=== PATIENT | female | born 1935 | race Caucasian/White ===

== ENCOUNTER 2017-07-12 19:52 | Inpatient (IN) | payer MEDICARE ==
[2017-07-12] MEDS ORDERED: ASPIRIN 81 MG CHEWABLE TABLET PO ONE (19:53)
--- NOTE | 2017-07-12 20:04 | Emergency Department Record ---
History of Present Illness - General Chief Complaint: Chest Pain Stated Complaint: CHEST PAIN Time Seen by Provider: 07/12/17 19:53 Source: Patient Mode of Arrival: Wheelchair Limitations: No limitations - History of Present Illness Initial Comments: 82 yo female presents to ED for evaluation of left sided chest pressure that began this morning. Patient reports that her symptoms began as a "cramping" to the left upper arm followed by the development of lefts ided chest pressure/ pain. Patient denies fevers, chills, or recent illness, and the patient denies previous heart or lung problems. Patient denies history of HTN/DM, reports a history of lymphoma in remission. Patient denies lower extremity cramping/ swelling or pain symptoms. MD Complaint: Chest pain Onset/Timin -: Hour(s) Onset: During rest Pain Location: Left chest Pain Radiation: LUE Severity: Moderate Quality: Heaviness Consistency: Intermittent Improves With: Nothing Worsens With: Nothing - Related Data Allergies Allergy/AdvReac Type Severity Reaction Status Date / Time penicillin V Allergy Severe HIVES Verified 07/12/17 20:00 Review of Systems Constitutional: Denies: Chills, Fever, Malaise, Night sweats Eyes: Denies: Eye discharge, Eye pain ENT: Denies: Congestion, Ear pain, Epistaxis Respiratory: Denies: Cough, Dyspnea Cardiovascular: Reports: Chest pain. Denies: Dyspnea on exertion, Palpitations Endocrine: Denies: Fatigue, Heat or cold intolerance Gastrointestinal: Denies: Abdominal pain, Nausea, Vomiting Genitourinary: Denies: Incontinence, Retention Musculoskeletal: Denies: Arthralgia, Back pain, Gout, Joint swelling Skin: Denies: Bruising, Change in color Neurological: Denies: Abnormal gait, Confusion, Headache, Seizure Psychiatric: Denies: Anxiety Hematological/Lymphatic: Denies: Anemia, Blood Clots Past Medical History - SOCIAL HISTORY Smoking Status: Never smoker Drug Use: None - RESPIRATORY Hx Respiratory Disorders: No - CARDIOVASCULAR Hx Cardio Disorders: No - NEURO Hx Neuro Disorders: No - GI Hx GI Disorders: Yes Hx Diverticulitis: Yes (hx) Hx Reflux: Yes - Hx Genitourinary Disorders: Yes Hx UTI: Yes (chronic) - ENDOCRINE Hx Endocrine Disorders: No - MUSCULOSKELETAL Hx Musculoskeletal Disorders: Yes Hx Arthritis: Yes - PSYCH Hx Psych Problems: No - HEMATOLOGY/ONCOLOGY Hx Hematology/Oncology Disorders: Yes Hx Cancer: Yes (Lymphoma (Bowels, Lungs, 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 negative: Conjunctival injection, Periorbital swelling, Periorbital tenderness, Scleral icterus - ENT Ear exam: negative: Auricular hematoma, Auricular trauma Nasal Exam: negative: Active bleeding, Discharge, Dried blood, Foreign body Mouth exam: negative: Drooling, Laceration, Muffled voice, Tongue elevation - Neck Neck exam: Normal inspection. negative: Meningismus, Tenderness - Respiratory Respiratory exam: Normal lung sounds bilaterally. negative: Rales, Respiratory distress, Rhonchi, Stridor - Cardiovascular Cardiovascular Exam: Regular rate, Normal rhythm, Normal heart sounds - GI/Abdominal GI/Abdominal exam: Soft. negative: Rebound, Rigid, Tenderness - Rectal Rectal exam: Deferred - exam: Deferred - Extremities Extremities exam: Normal inspection. negative: Calf tenderness, Pedal edema, Tenderness - Back Back exam: Denies: CVA tenderness (R), CVA tenderness (L) - Neurological Neurological exam: Alert, Normal gait, Oriented X3 - Psychiatric Psychiatric exam: Normal affect, Normal mood - Skin Skin exam: Normal color. negative: Abrasion Type of lesion: negative: abrasion Course - Reevaluation(s) Reevaluation #1: 07/12/17 20:03 EKG: NSR 86 Normal axis, normal intervals No acute ST-T wave changes are present Unchanged from 12/13/13 Reevaluation #2: 07/12/17 21:13 Labs reviewed, WBC 16.3, labs are otherwise grossly unremarkable for an acute process. CXR: Bilateral infiltrates, 8 mm nodule left mid-lung. Patient and her son at the bedside were updated on all results including the 8 mm nodule in mireille left mid-lung, patient reprots that she is going to see Dr. Torres (oncologist) at [facility] [place] for her 6 month follow-up in 5 days. Rocephin and Zithromax were initiated in the ED, and the patient is in agreement about staying for admission and further treatment of her pneumonia. Medical Decision Making - Lab Data Result diagrams: 07/12/17 20:08 07/12/17 20:08 Disposition Disposition: Admit Clinical Impression: CAP (community acquired pneumonia) Qualifiers: Laterality: unspecified laterality Qualified Code(s): J18.9 - Pneumonia, unspecified organism Disposition: Still a Patient at [facility] Decision to Admit: Admit from ER Decision to Admit Date: 07/12/17 Decision to Admit Time: 21:16 Condition: (2) Stable Forms: Patient Portal Access Time of Disposition: 21:16 Quality - Quality Measures Quality Measures: N/A - Blood Pressure Screening Does Patient Have Any of the Following: Active Dx of HTN Blood Pressure Classification: Normal BP Reading Systolic Measurement: 119 Diastolic Measurement: 59 Screening for High Blood Pressure: Patient Exclusion, Hx of HTN [[id number]]
[2017-07-12 20:15] LABS: BASO % 0.2 % (0-6); EOS % 0.2 % (0-6); GRAN % 70.1 % (47-80); HEMATOCRIT 37.8 % (35.0-47.0); HEMOGLOBIN 12.2 gm/dl (11.6-16.0); LYMPH % 19.9 % (16-45); MEAN CELL VOLUME 87.7 fl (81-97); MEAN CORPUSCULAR HEMOGLOBIN 28.3 pg (27-33); MEAN CORPUSCULAR HGB CONC 32.3 g/dl (32-36); MEAN PLATELET VOLUME 9.3 fl (7.4-10.4); MONO % 9.6 % (0-9); PLATELET COUNT 280 K/uL (130-400); RED BLOOD COUNT 4.31 M/uL (3.80-5.40); RED CELL DISTRIBUTION WIDTH 13.9 % (11.5-14.5); WHITE BLOOD COUNT W/O DIFF 16.3 K/uL (4.2-12.2)
[2017-07-12 20:32] LABS: ALB/GLOB RATIO 1.3 (1.1-1.8); ALKALINE PHOSPHATASE 79 U/L (35-104); ALT/SGPT 11 U/L (<33); AST/SGOT 20 U/L (10.0-35.0); BLOOD UREA NITROGEN 14 mg/dL (8-23); CKMB 2.6 ng/mL (<3.77); CREATINE PHOSPHOKINASE 95 U/L (26-192); CREATININE 0.6 mg/dL (0.5-0.9); EST GLOMERULAR FILTRATION RATE > 60 mL/min; GLUCOSE,RANDOM 106 mg/dL (74-109); TOTAL PROTEIN 7.1 g/dL (6.6-8.7)
[2017-07-12] MEDS ORDERED: NITROGLYCERIN 0.4MG SL TABLET #25 BTL SL ONE (20:43)
[2017-07-12] MEDS ORDERED: CEFTRIAXONE SODIUM 1 GM in 0.9 % SODIUM CHLORIDE 100ML 100 ML IVPB ONE (21:13)
[2017-07-12] MEDS ORDERED: ACETAMINOPHEN 500 MG TABLET PO ONE (21:13)
[2017-07-12] MEDS ORDERED: AZITHROMYCIN 500 MG in 0.9 % SODIUM CHLORIDE 250ML 250 ML IVPB ONE (21:13)
[2017-07-12] MEDS ORDERED: 0.9 % SODIUM CHLORIDE 1000ML 500 ML IV SCH (21:30)
[2017-07-12] MEDS: AZITHROMYCIN 500 MG in 0.9 % SODIUM CHLORIDE 250ML 250 ML IVPB SCH (22:58)
[2017-07-12 23:17] LABS: URINE APPEARANCE SL CLOUDY; URINE BILIRUBIN NEGATIVE (NEGATIVE); URINE BLOOD TRACE-I (NEGATIVE); URINE COLOR YELLOW; URINE GLUCOSE (UA) NEGATIVE (NEGATIVE); URINE KETONE 40 mg/dL (NEGATIVE); URINE LEUKOCYTE ESTERASE LARGE (NEGATIVE); URINE NITRITE NEGATIVE (NEGATIVE); URINE PROTEIN NEGATIVE (NEGATIVE)
[2017-07-12 23:33] LABS: URINE BACTERIA 1+; URINE RBC 0 - 2 (NONE SEEN)
[2017-07-13] MEDS: PANTOPRAZOLE SODIUM 40 MG TABLET PO SCH (07:15)
--- NOTE | 2017-07-13 07:59 | History & Physical ---
History of Present Illness - Date of Service Date of Service for History & Physical: 07/13/17 - History of Present Illness Admitting Diagnosis: b/l pneumonia; chest pain History of Present Illness: 82yo female with CC of left sided chest pain and cough. She has history of chronic UTI's, follows with Dr. Romo, and diffuse large B-cell lymphoma in remission, follows with Dr. Torres at [facility]. Patient presented to the ED last evening after she began having left arm cramping that progressed to pain located over the left side of her chest. The pain was not getting any better so she came in to the ED. While in the ED, patient had EKG that had no ST changes. 1st set of CE returned within normal range. CXR showed new 7.8mm nodule in the left lung, along with bilateral atelectasis vs infiltrate in the bases. UA was positive for large amount of LE She had elevated WBC count of 16. She had temp of 100.3 but spiked a fever with tmax of 101.2. She was started on rocephin and azithromycin for pna and UTI and was admitted for serial enzymes. 07/13/17- Patient states she is feeling better today. States the pain in the left side of her chest has improved but not resolved. she says it starts where the ribs meet the sternum and radiates along her ribs. She says the pain is worse with movement, better with rest. Taking a deep breath in causes sharp pain. she denies feeling short of breath. Has had a dry cough for the past few days. no nasal congestion, sore throat. No history of cardiac disease personally or in any 1st degree relatives. no pmh of dm, htn or high cholesterol , never smoked. She has a follow up with Dr. Torres scheduled for 07/18/17. she last did chemotherapy in summer. pcp: [facility]-Dr. Lacy oncologist: Dr. Torres, [facility] Travel Screening - Travel/Exposure Within Last 30 Days Have you traveled within the last 30 days?: Yes Location Detail:: [place], [place] - Travel/Exposure Within Last Year Have you traveled outside the [place] in the last year?: No - Additonal Travel Details Have you been exposed to anyone with a communicable illness?: No - Travel Symptoms Symptom Screening: Fever (GT 100.4), Fatigue Review of Systems Constitutional: Denies: Chills, Fever, Malaise, Night sweats Eyes: Denies: Eye discharge, Eye pain ENT: Denies: Congestion, Ear pain, Epistaxis Respiratory: Reports: Cough. Denies: Dyspnea Cardiovascular: Reports: Chest pain. Denies: Dyspnea on exertion, Palpitations Endocrine: Denies: Fatigue, Heat or cold intolerance Gastrointestinal: Denies: Abdominal pain, Nausea, Vomiting Genitourinary: Denies: Incontinence, Retention Musculoskeletal: Denies: Arthralgia, Back pain, Gout, Joint swelling Skin: Denies: Bruising, Change in color Neurological: Denies: Abnormal gait, Confusion, Headache, Seizure Psychiatric: Denies: Anxiety Hematological/Lymphatic: Denies: Anemia, Blood Clots Past Medical History - SOCIAL HISTORY Smoking Status: Never smoker Alcohol Use: None Drug Use: None - RESPIRATORY Hx Respiratory Disorders: No - CARDIOVASCULAR Hx Cardio Disorders: No - NEURO Hx Neuro Disorders: No - GI Hx GI Disorders: Yes Hx Diverticulitis: Yes (hx) Hx Reflux: Yes - Hx Genitourinary Disorders: Yes Hx UTI: Yes (chronic) - ENDOCRINE Hx Endocrine Disorders: No - MUSCULOSKELETAL Hx Musculoskeletal Disorders: Yes Hx Arthritis: Yes - PSYCH Hx Psych Problems: No - HEMATOLOGY/ONCOLOGY Hx Hematology/Oncology Disorders: Yes Hx Cancer: Yes (Lymphoma (Bowels, Lungs, 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)) Hx Chemotherapy: Yes (2013) Hx Radiation Therapy: No Family Medical History Any Significant Family History?: No Hx Cancer: Father H&P Meds/Allergies - Allergies Allergies: Allergies Allergy/AdvReac Type Severity Reaction Status Date / Time penicillin V Allergy Severe HIVES Verified 07/12/17 20:00 - Active Medications Active Medications: Current Medications Acetaminophen (Tylenol 500mg Tab) 1,000 mg PO Q6H PRN PRN Reason: PAIN/TEMP Sodium Chloride () 1,000 mls @ 125 mls/hr IV .Q8H PRN PRN Reason: LARGE VOLUME IV Azithromycin 500 mg/ Sodium (Chloride) 250 mls @ 250 mls/hr IVPB Q24H LIZY Stop: 07/17/17 22:01 Last Infusion: 07/12/17 23:55 Dose: Infused Ceftriaxone Sodium 1 gm/ (Sodium Chloride) 100 mls @ 100 mls/hr IVPB Q24H LIZY Stop: 07/18/17 21:01 Pantoprazole Sodium (Protonix) 40 mg PO [facility]ILYAC [facility] Last Admin: 07/13/17 07:15 Dose: Not Given Physical Exam - Vital Signs Vital Signs: Vital Signs - Last 24 Hrs Temp Pulse Resp BP Pulse Ox 07/13/17 06:00 97.1 F L 70 18 118/67 94 L 07/13/17 02:00 97.4 F L 61 18 102/60 96 07/12/17 23:00 100.6 F H 76 18 107/46 95 - General General Appearance: Alert, Oriented x3, Cooperative, No acute distress Limitations: No limitations - Head Head exam: Atraumatic, Normocephalic, Normal inspection Head exam detail: negative: Abrasion, Contusion, Echeverria's sign, General tenderness, Hematoma, Laceration - Eye Eye exam: Normal appearance. negative: Conjunctival injection, Periorbital swelling, Periorbital tenderness, Scleral icterus - ENT Ear exam: negative: Auricular hematoma, Auricular trauma Nasal Exam: negative: Active bleeding, Discharge, Dried blood, Foreign body Mouth exam: negative: Drooling, Laceration, Muffled voice, Tongue elevation - Neck Neck exam: Normal inspection. negative: Meningismus, Tenderness - Respiratory Respiratory exam: Normal lung sounds bilaterally, Other (ttp over 7th rib anteriorly at sternal border ). negative: Rales, Respiratory distress, Rhonchi , Stridor - Cardiovascular Cardiovascular Exam: Regular rate, Normal rhythm, Normal heart sounds - GI/Abdominal GI/Abdominal exam: Soft. negative: Rebound, Rigid, Tenderness - Rectal Rectal exam: Deferred - exam: Deferred - Extremities Extremities exam: Normal inspection. negative: Calf tenderness, Pedal edema, Tenderness - Back Back exam: Denies: CVA tenderness (R), CVA tenderness (L) - Neurological Neurological exam: Alert, Normal gait, Oriented X3 - Psychiatric Psychiatric exam: Normal affect, Normal mood - Skin Skin exam: Normal color. negative: Abrasion Type of lesion: negative: abrasion Results - Labs Result Diagrams: 07/13/17 04:10 07/13/17 04:10 Labs Last 24 Hours: Laboratory Results - last 24 hr 07/12/17 07/13/17 22:15 04:10 Troponin T < 0.010 Urine Color Yellow Urine Appearance Sl cloudy Urine pH 6.5 Ur Specific [place] 1.015 Urine Protein Negative Urine Glucose (UA) Negative Urine Ketones 40 mg/dl H Urine Blood Trace-i Urine Nitrite Negative Urine Bilirubin Negative Urine Urobilinogen 1.0 Ur Leukocyte Esterase Large H Urine RBC 0 - 2 Urine WBC Too numerous to cnt U Non-Squamous Epi Cells 3 - 6 Urine Bacteria 1+ - Imaging and Cardiology Chest x-ray Status: Report reviewed (bilateral atelectasis vs infiltrate) VTE H&P Assessment - Risk for VTE Risk for VTE: Yes Risk Level: High Risk Assessment Date: 07/13/17 Risk Assessment Time: 13:31 VTE Orders Placed or Will Be Placed: Yes Plan - Inpatient Certification Inpatient Certification: Admit to inpatient care: Based on my medical assessment, after consideration of patient's risk factors (age, co-morbidities and patient presenting symptoms and acuity), I expect that this patient will remain in the hospital greater than or equal to two midnights and that the services needed warrant inpatient care because: Patient Risk Factors: [age, bilateral pneumonia, chest pain, h/o lymphoma] Estimated length of stay: [48H] The patient may reasonably be expected to be discharged or transferred to a hospital within 96 hours after admission to [facility]. Services needed: [IV antibiotics, cardiac monitoring] Post hospital care (if known): [] I certify that my determination is in accordance with my understanding of Medicare requirements for reasonable and necessary inpatient services. 07/13/17 13:31 - Detailed Diagnosis and Plan (1) CAP (community acquired pneumonia) Current Visit: Yes Status: Acute Qualifiers: Laterality: unspecified laterality Qualified Code(s): J18.9 - Pneumonia, unspecified organism Base Code: J18.9 - PNEUMONIA, UNSPECIFIED ORGANISM Comment: 07/13/17- clinically improved today. Was febrile through the night with tmax 101.2. CXR showing bilateral atelectasis vs infiltrate. WBC count down from 16 to 13.2 following 1st dose of abx. oxygen saturation slightly low at 92-94% on room air. she denies shortness of breath. -cotninue rocephin 1gm IV q12h and azithromycin 250mg IV daily -will add incentive spirometry -breathing treatment q4H prn -vitals q8H -repeat labs qam (2) Chest pain Current Visit: Yes Status: Acute Base Code: R07.9 - CHEST PAIN, UNSPECIFIED Comment: 07/13/17- Improved but not resolved. EKG was negative for ischemic changes. All 3 sets of CE returned within normal. No cardiac risk factors aside from age and sex. pain is somewhat reproducible with palpation over the sternal border. She is having increased pain with deep inspiration. -will get CTA to eval for PE and to further evaluate the new nodule seen on CXR (3) Lymphoma Current Visit: Yes Status: Resolved Qualifiers: Lymphoma type: non-Hodgkin Non-Hodgkin lymphoma type: B-cell B-cell lymphoma type: diffuse large B-cell Lymphoma site: multiple regions Qualified Code(s): C83.38 - Diffuse large B-cell lymphoma, lymph nodes of multiple sites Base Code: C85.90 - NON-HODGKIN LYMPHOMA, UNSPECIFIED, UNSPECIFIED SITE Comment: 07/13/17- patient follows with Dr. Torres at [facility]. Last round of chemo was in 2013. says she has been in remission. CXR showed new nodule in the left lung 7.8mm. -will get CT scan and she has follow up with Dr. Torres on 07/18/17. (4) Full code status Current Visit: Yes Status: Acute Base Code: Z78.9 - OTHER SPECIFIED HEALTH STATUS Comment: 07/13/17- patient is full code (5) DVT prophylaxis Current Visit: Yes Status: Acute Base Code: [id number] - Comment: 07/13/17- will add lovenox 40mg sq daily.
[2017-07-13] MEDS: CEFTRIAXONE SODIUM 1 GM in 0.9 % SODIUM CHLORIDE 100ML 100 ML IVPB SCH ×2 (08:27→20:13)
[2017-07-13 09:07] LABS: BASO % 0.2 % (0-6); EOS % 1.1 % (0-6); GRAN % 64.9 % (47-80); HEMATOCRIT 35.5 % (35.0-47.0); HEMOGLOBIN 11.1 gm/dl (11.6-16.0); LYMPH % 21.7 % (16-45); MEAN CELL VOLUME 90.3 fl (81-97); MEAN CORPUSCULAR HEMOGLOBIN 28.2 pg (27-33); MEAN CORPUSCULAR HGB CONC 31.3 g/dl (32-36); MEAN PLATELET VOLUME 10.2 fl (7.4-10.4); MONO % 12.1 % (0-9); PLATELET COUNT 259 K/uL (130-400); RED BLOOD COUNT 3.93 M/uL (3.80-5.40); RED CELL DISTRIBUTION WIDTH 14.1 % (11.5-14.5); WHITE BLOOD COUNT W/O DIFF 13.2 K/uL (4.2-12.2)
[2017-07-13 09:23] LABS: ALB/GLOB RATIO 1.3 (1.1-1.8); ALBUMIN 3.4 g/dL (4.0-5.0); ALKALINE PHOSPHATASE 69 U/L (35-104); ALT/SGPT 10 U/L (<33); AST/SGOT 19 U/L (10.0-35.0); BLOOD UREA NITROGEN 12 mg/dL (8-23); CREATININE 0.6 mg/dL (0.5-0.9); EST GLOMERULAR FILTRATION RATE > 60 mL/min; GLUCOSE,RANDOM 91 mg/dL (74-109); TOTAL PROTEIN 6.1 g/dL (6.6-8.7)
[2017-07-13] MEDS: ACETAMINOPHEN 500 MG TABLET PO PRN ×3 (09:59→22:07)
[2017-07-13] MEDS: 0.9 % SODIUM CHLORIDE 1000ML 1,000 ML IV PRN (11:34)
[2017-07-13] MEDS ORDERED: CEFTRIAXONE SODIUM 1 GM in 0.9 % SODIUM CHLORIDE 100ML 100 ML IVPB SCH (21:00)
[2017-07-13] MEDS: AZITHROMYCIN 500 MG in 0.9 % SODIUM CHLORIDE 250ML 250 ML IVPB SCH (22:06)
[2017-07-13] MEDS: ENOXAPARIN 40 MG/0.4 ML SYR SQ SCH (22:07)
[2017-07-14] MEDS: PANTOPRAZOLE SODIUM 40 MG TABLET PO SCH (06:19)
[2017-07-14 06:50] LABS: BASO % 0.3 % (0-6); HEMOGLOBIN 11.6 gm/dl (11.6-16.0); LYMPH % 24.3 % (16-45); MEAN CELL VOLUME 89.6 fl (81-97); MEAN CORPUSCULAR HEMOGLOBIN 28.1 pg (27-33); MEAN CORPUSCULAR HGB CONC 31.4 g/dl (32-36); MEAN PLATELET VOLUME 9.9 fl (7.4-10.4); MONO % 11.4 % (0-9); PLATELET COUNT 278 K/uL (130-400); RED BLOOD COUNT 4.13 M/uL (3.80-5.40); RED CELL DISTRIBUTION WIDTH 14.2 % (11.5-14.5); WHITE BLOOD COUNT W/O DIFF 10.4 K/uL (4.2-12.2)
[2017-07-14 07:00] LABS: BLOOD UREA NITROGEN 8 mg/dL (8-23); CREATININE 0.6 mg/dL (0.5-0.9); EST GLOMERULAR FILTRATION RATE > 60 mL/min; GLUCOSE,RANDOM 95 mg/dL (74-109)
--- NOTE | 2017-07-14 07:24 | RADIOLOGY REPORT ---
EXAM: CHEST, TWO VIEWS HISTORY: MID CHEST PAIN, COUGH. TECHNIQUE: Upright PA and lateral views of the chest were obtained. Comparison: Two view chest radiographic examination dated 10/30/14. FINDINGS: The heart is not enlarged and the pulmonary vasculature is nondilated. The thoracic aorta remains tortuous and atherosclerotic. Biapical pleural and parenchymal scarring persists. Minor patchy opacities are suggested within the lung bases consistent with atelectasis or infiltrate. Additionally, there is an ill defined nodular opacity seen on the frontal view at the mid left lung level measuring 8 mm in diameter. This cannot be further localized. It was not visualized on the prior examination. It is of indeterminate etiology. The lungs and pleural spaces are otherwise clear. There are degenerative changes of the visualized spine and shoulder girdles. Surgical anchors are again noted in the proximal aspects of each humerus. IMPRESSION: 1. MINOR PATCHY OPACITIES IN THE LOWER LUNGS MOST PRONOUNCED ANTERIORLY CONSISTENT WITH ATELECTASIS OR INFILTRATE. 2. 8 MM ILL DEFINED NODULAR OPACITY PROJECTING AT THE LEFT MID LUNG LEVEL. THIS CANNOT BE FURTHER LOCALIZED. THIS IS OF INDETERMINATE ETIOLOGY WITH MALIGNANCY NOT EXCLUDED. FURTHER EVALUATION WITH CT EXAMINATION MAY BE OF BENEFIT. 3. BIAPICAL PLEURAL AND PARENCHYMAL SCARRING. JOB NUMBER: [id number] [facility]
--- NOTE | 2017-07-14 07:33 | CT ANGIOGRAM REPORT ---
EXAM: CTA OF THE CHEST HISTORY: ACUTE GENERALIZED CHEST PAIN, LEUKOCYTOSIS. TECHNIQUE: Contiguous axial images from the thoracic inlet to the upper abdomen were obtained after the uneventful intravenous administration of 90 ml of Omnipaque 350. Sagittal and coronal two dimensional as well as 3D/MIP reformatted images were obtained for better anatomic delineation. Comparison: Chest x-ray 07/12/17. FINDINGS: Triangular consolidative change in the left upper lobe abutting the major fissure with some air bronchograms measuring 3.3 x 2.3 cm. Consolidative change in the left upper lobe lobe medially abutting the mediastinal pleura with air bronchograms measuring 3.5 x 2.8 cm. Triangular density in the right upper lobe medially with slight traction bronchiectasis likely due to scarring measuring 1.9 x 1.1 cm. Dependent atelectasis of mild degree. No pleural effusion. The central airways are patent. The heart is mildly enlarged, but there is no pericardial effusion. Mild coronary artery calcification. Calcified left suprahilar and left infrahilar lymph nodes. Partially calcified precarinal lymph node measures 1.5 x 1.1 cm. Small hiatal hernia. The pulmonary arteries are not optimally opacified compromising evaluation for PE. No filling defect to the proximal segmental level. No right heart strain. No thoracic aortic dissection. The upper abdomen demonstrates calcified granulomata within the spleen. Unilocular cyst mid right kidney measures 1.5 cm. No lytic or blastic osseous lesions. IMPRESSION: 1. CONSOLIDATIVE CHANGE IN THE LEFT UPPER LOBE IN TWO AREAS WITH AIR BRONCHOGRAMS WHICH MAY REFLECT PNEUMONIA. RECOMMEND RADIOGRAPHIC FOLLOW-UP AFTER APPROPRIATE THERAPY. 2. NO PE OR THORACIC AORTIC DISSECTION ALLOWING FOR SUBOPTIMAL BULLOUS. 3. 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 4. SMALL HIATAL HERNIA 5. MILD CARDIOMEGALY. JOB [facility]BER: [id number] [facility]
[2017-07-14] MEDS: CEFTRIAXONE SODIUM 1 GM in 0.9 % SODIUM CHLORIDE 100ML 100 ML IVPB SCH (09:02)
[2017-07-14] MEDS: 0.9 % SODIUM CHLORIDE 1000ML 1,000 ML IV PRN (09:04)
--- NOTE | 2017-07-14 10:23 | Discharge Summary ---
Providers Discharge Summary Date: 07/14/17 Date of admission: 07/12/17 21:54 Attending physician: Rivas Grier Primary care physician: RUPERTO LACY Physical Exam - Vital Signs Vital Signs: Vital Signs - Last 24 Hrs Temp Pulse Pulse Pulse Pulse Resp BP 07/14/17 10:05 77 16 07/14/17 07:30 98.8 F 68 14 131/70 07/14/17 06:05 76 16 07/14/17 06:03 86 16 07/14/17 06:00 97.5 F L 69 18 07/14/17 02:00 97.3 F L 69 18 07/13/17 22:00 97.9 F 77 18 07/13/17 20:57 76 16 07/13/17 20:33 65 18 07/13/17 19:30 99.1 F 65 18 07/13/17 14:53 76 16 07/13/17 14:00 98.1 F 67 20 114/61 07/13/17 10:26 72 15 BP Pulse Ox 07/14/17 10:05 94 L 07/14/17 07:30 92 L 07/14/17 06:05 96 07/14/17 06:03 07/14/17 06:00 123/68 95 07/14/17 02:00 121/68 99 07/13/17 22:00 127/74 99 07/13/17 20:57 93 L 07/13/17 20:33 07/13/17 19:30 112/61 96 07/13/17 14:53 07/13/17 14:00 94 L 07/13/17 10:26 92 L - General General Appearance: Alert, Oriented x3, Cooperative, No acute distress Limitations: No limitations - Head Head exam: Atraumatic, Normocephalic, Normal inspection Head exam detail: negative: Abrasion, Contusion, Echeverria's sign, General tenderness, Hematoma, Laceration - Eye Eye exam: Normal appearance. negative: Conjunctival injection, Periorbital swelling, Periorbital tenderness, Scleral icterus - ENT Ear exam: negative: Auricular hematoma, Auricular trauma Nasal Exam: negative: Active bleeding, Discharge, Dried blood, Foreign body Mouth exam: negative: Drooling, Laceration, Muffled voice, Tongue elevation - Neck Neck exam: Normal inspection. negative: Meningismus, Tenderness - Respiratory Respiratory exam: Normal lung sounds bilaterally, Other (ttp over 7th rib anteriorly at sternal border ). negative: Rales, Respiratory distress, Rhonchi , Stridor - Cardiovascular Cardiovascular Exam: Regular rate, Normal rhythm, Normal heart sounds - GI/Abdominal GI/Abdominal exam: Soft. negative: Rebound, Rigid, Tenderness - Rectal Rectal exam: Deferred - exam: Deferred - Extremities Extremities exam: Normal inspection. negative: Calf tenderness, Pedal edema, Tenderness - Back Back exam: Denies: CVA tenderness (R), CVA tenderness (L) - Neurological Neurological exam: Alert, Normal gait, Oriented X3 - Psychiatric Psychiatric exam: Normal affect, Normal mood - Skin Skin exam: Normal color. negative: Abrasion Type of lesion: negative: abrasion Hospitalization - Hospitalization Admission Diagnosis: b/l pneumonia; chest pain - Problem List/Discharge Diagnosis (1) CAP (community acquired pneumonia) Status: Acute Discharge Diagnosis: Laterality: left Lung location: upper lobe of lung Qualified Code(s): J18.1 - Lobar pneumonia, unspecified organism Base Code: J18.9 - PNEUMONIA, UNSPECIFIED ORGANISM Comment: 07/14/17- Continues to improve clinically. CTA on 07/13/17 showed area of consolidation in left upper lobe of lung which was previously thought to be a new nodule on CXR. Pt. has remained afebrile since 07/13 and left upper chest pain has significantly improved. She has not required anything for pain control. She denies shortness of breath and her O2 sat is 94% on room air. Her WBC count is down from 16.3 on admission to 10.4 today. -She has been started on oral azithromycin. continue with azithromycin 250mg po daily for 2 more days and cefdinir 300mg po bid for 7 days -plan to discharge home today -Jen, child care provider, for [facility] has scheduled patient a hospital follow up with Dr. Lacy (2) Chest pain Status: Acute Base Code: R07.9 - CHEST PAIN, UNSPECIFIED Comment: 07/14/17- resolving. EKG was negative for ischemic changes. All 3 sets of CE returned within normal. No cardiac risk factors aside from age and sex. pain is somewhat reproducible with palpation over the sternal border. CTA negative for PE and dissection. do not feel pain is cardiac in origin. likely 2/2 pneumonia in the left upper lobe -follow up with Dr. Lacy as outpatient (3) UTI (urinary tract infection) Status: Acute Discharge Diagnosis: Urinary tract infection type: acute cystitis Hematuria presence: without hematuria Qualified Code(s): N30.00 - Acute cystitis without hematuria Base Code: N39.0 - URINARY TRACT INFECTION, SITE NOT SPECIFIED Comment: - UA showed large amounts of leukocyte esterase in ER, was afebrile and WBC count was 16.4. Improved following IV rocephin. Continue cefdinir 300mg twice daily for 10 day course for UTI Follow up with Dr. Lacy to discuss penitentiary use of antibiotic prophylaxis. 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 Torres at [facility]. Last round of chemo was in 2013. says she has been in remission. CXR showed new nodule in the left lung 7.8mm, however, CTA done yesterday showed this be more of consolidative changes c/w pneumonia. -she has follow up with Dr. Torres on 07/18/17. -she has cta and cxr report to take with her (5) Full code status Status: Acute Base Code: Z78.9 - OTHER SPECIFIED HEALTH STATUS Comment: - patient is full code (6) DVT prophylaxis Status: Acute Base Code: [id number] - Comment: 07/14/17- will add lovenox 40mg sq daily. - Hospitalization Course Disposition: Home, Self-Care Hospital Course: 82yo female with CC of left sided chest pain and cough. She has history of chronic UTI's, follows with Dr. Romo, and diffuse large B-cell lymphoma in remission, follows with Dr. Torres at [facility]. Patient presented to the ED last evening after she began having left arm cramping that progressed to pain located over the left side of her chest. The pain was not getting any better so she came in to the ED. While in the ED, patient had EKG that had no ST changes. 1st set of CE returned within normal range. CXR showed new 7.8mm nodule in the left lung, along with bilateral atelectasis vs infiltrate in the bases. UA was positive for large amount of LE She had elevated WBC count of 16. She had temp of 100.3 but spiked a fever with tmax of 101.2. She was started on rocephin and azithromycin for pna and UTI and was admitted for serial enzymes. 07/13/17- Patient states she is feeling better today. States the pain in the left side of her chest has improved but not resolved. she says it starts where the ribs meet the sternum and radiates along her ribs. She says the pain is worse with movement, better with rest. Taking a deep breath in causes sharp pain. she denies feeling short of breath. Has had a dry cough for the past few days. no nasal congestion, sore throat. No history of cardiac disease personally or in any 1st degree relatives. no pmh of dm, htn or high cholesterol , never smoked. She has a follow up with Dr. Torres scheduled for 07/18/17. she last did chemotherapy in summer. 07/14/17- Patient continues to feel better. says the pain in her left chest is improved significantly. not having to use even tylenol for control. She denies shortness of breath or productive cough today. She denies fever, chills, poor appetite or fatigue. She has already been up and walked the hallways without difficulty. She is feeling ready to go home. pcp: [facility]-Dr. Lacy oncologist: Dr. Torres, [facility] Procedures: Imaging and X-Rays 07/13/17 13:37 CHEST CTA w contrast [CTA] Stat Abnormal Labs: Abnormal Lab Results 07/12/17 07/13/17 07/13/17 Range/Units 22:15 04:10 04:10 WBC 13.2 H (4.2-12.2) K/uL Hgb 11.1 L (11.6-16.0) gm/dl MCHC 31.3 L (32-36) g/dl Monocytes % 12.1 H (0-9) % Potassium (3.4-4.5) mmol/L Calcium 8.5 L (8.8-10.2) mg/dL Total Protein 6.1 L (6.6-8.7) g/dL Albumin 3.4 L (4.0-5.0) g/dL Urine Ketones 40 mg/dl H (NEGATIVE) Ur Leukocyte Esterase Large H (NEGATIVE) 07/14/17 07/14/17 Range/Units 06:14 06:14 WBC (4.2-12.2) K/uL Hgb (11.6-16.0) gm/dl MCHC 31.4 L (32-36) g/dl Monocytes % 11.4 H (0-9) % Potassium 4.6 H (3.4-4.5) mmol/L Calcium 8.5 L (8.8-10.2) mg/dL Total Protein (6.6-8.7) g/dL Albumin (4.0-5.0) g/dL Urine Ketones (NEGATIVE) Ur Leukocyte Esterase (NEGATIVE) Condition at Discharge: (2) Stable Discharge Medications - Discharge Medications Prescriptions: Azithromycin 250 mg PO DAILY #2 tablet Cefdinir 300 mg PO BID #15 capsule Home Medications: Ambulatory Orders Omeprazole 1 cap PO DAILY 11/01/14 [Last Taken Unknown] Azithromycin 250 mg PO DAILY #2 tablet 07/14/17 [Last Taken Unknown] Cefdinir 300 mg PO BID #15 capsule 07/14/17 [Last Taken Unknown] Discharge Plan - Discharge Instructions Activity at Discharge: Resume Usual Activities As Tolerated Diet at Discharge: Regular Diet Instructions: Azithromycin (By mouth), Cefdinir (By mouth), Community Acquired Pneumonia (DC) Additional Instructions: 2 Activity: Resume Usual Activities As Tolerated 2 Diet: Regular Diet 2 Consults: [] 2 Follow Up: [] 2 Dressing/Wound Care: (Type) (Change) 2 Additional: [] Please follow up with your primary care provider in 7-10 days -Discuss chronic UTIs with Dr. Lacy and Inna usage Follow up with Dr. Norris on 07/18 as previously scheduled Continue: -Azithromycin 250mg once daily for 2 days -Cefdinir 300 mg twice daily for 7 days -Continue home meds as ordered Please call with any questions or concerns Return to ED if any new worsening symptoms Quality Measures - Quality Measures Quality Measures: Advance Directives, Documentation of Current Medications in Medical Record, Elder Maltreatment Screen and Follow-Up Plan, Screening for High Blood Pressure and F/U Documented - Current Medications Quality Measure: Measure #130: Documentation of Current Medications Documentation of Current Medications: <Current Medications Documented/Reviewed> [G7359] - Blood Pressure Screening Quality Measure: Screening for High Blood Pressure and Follow-Up Documented Does Patient Have Any of the Following: No Blood Pressure Classification: Hypertensive Reading Systolic Measurement: 145 Diastolic Measurement: 72 Screening for High Blood Pressure: < First Hypertensive BP, F/U Documented > [ G8950] First Hypertensive Follow-up Interventions: Follow-up with rescreen GT 1 day and LT 4 weeks., Referral to alternative/primary care provider. - Advance Directives Quality Measure: Measure #47: Care Plan Advance Directives Established: No Advance Directives Information Provided To Patient: No Advance Directives on File: No Living Will: No Power of Glass Sander: No Advance Care Planning: <Care Plan/Decision Maker Not Decided; Discussed & Documented> [1125F] - Elder Abuse Suspicion Index Screening: Elder Abuse Suspicion Index Screening Rely on people for bathing, dressing, shopping, banking, etc: No Prevented from getting food, clothes, medication, etc: No Made to feel shamed or threatened by someone: No Forced to sign papers or use money against will: No Feel afraid, touched in ways not wanted or hurt physically: No Poor eye contact, withdrawn, malnourished, cuts or bruises: No Screening Result: Negative result EASI Reference Information: Stoney CERVANTES, Jamie C, Americo D, Geoffrey Fortune.Development and validation of a tool to assist physicians identification of elder abuse: The Elder Abuse Suspicion Index (EASI ). Journal of Elder Abuse and Neglect, 2008; 20 (3): 276-300. - Elder Maltreatment Screen Quality Measures: Elder Maltreatment Screen and Follow-Up Plan Elder Maltreatment Screen: <Negative, No Follow-Up Plan Required> [G8734]
[2017-07-14] MEDS: ENOXAPARIN 40 MG/0.4 ML SYR SQ SCH (11:01)
[2017-07-14] MEDS ORDERED: AZITHROMYCIN 250 MG TABLET PO ONE (11:04)
== END 2017-07-14 13:40 | disposition home or self-care (01) | DRG 194 ==
LOC: ER 19:52 → MEDSURG 21:54
PROVIDERS: ADMIT Internal Medicine; ATTEND Internal Medicine
DX: J18.9 Pneumonia, unspecified organism (principal); J18.1 Lobar pneumonia, unspecified organism; R05 Cough; R50.9 Fever, unspecified; N39.0 Urinary tract infection, site not specified; R07.9 Chest pain, unspecified; Z85.72 Personal history of non-Hodgkin lymphomas
CPT/HCPCS: 71020; 71275; 80048; 80053; 81001; 82310; 82550; 82553; 83605; 84484; 85025; 93005; 93010; 93041; 94010; 94761; 96365; 96375; 99223; 99239; 99285; J0456; J1650; J7030; J7050

== ENCOUNTER 2018-08-17 13:37 | Emergency (ER) | payer MEDICARE ==
--- NOTE | 2018-08-17 13:57 | Emergency Department Record ---
History of Present Illness - General Chief complaint: Female Urogenital Problem Stated complaint: UTI Time Seen by Provider: 08/17/18 13:39 Source: Patient Mode of Arrival: Ambulatory Limitations: No limitations - History of Present Illness Initial comments: The patient is here due to waking up this AM with mild to moderate LLQ AP similar to her Diverticulitis in the past. She denies any dysuria, fever, chills , back pain, nausea, vomiting, or diarrhea. The patient did have a BM and the pain mostly resolved. She did go to the and had lab work and a WBC of 15 so she was sent to the ER. Presently she states she feels well. Complaint: Other Onset/Timin -: Hour(s) Location: Suprapubic Radiation: Non-radiating Severity: Moderate Severity scale (1-10): 4 Quality: Aching Consistency: Now resolved Improves with: None Worsens with: None Patient : No Associated Symptoms: Denies other symptoms - Related Data Previous Rx's Medication Instructions Recorded Ciprofloxacin HCl [Cipro] 500 mg PO Q12HR #14 tablet 08/17/18 Metronidazole [Flagyl] 500 mg PO TID #21 tablet 08/17/18 Allergies Allergy/AdvReac Type Severity Reaction Status Date / Time penicillin V Allergy Severe HIVES Verified 08/17/18 13:44 Travel Screening - Travel/Exposure Within Last 30 Days Have you traveled within the last 30 days?: No - Travel/Exposure Within Last Year Have you traveled outside the [place] in the last year?: No - Additonal Travel Details Have you been exposed to anyone with a communicable illness?: No - Travel Symptoms Symptom Screening: None Review of Systems Constitutional: Denies: Chills, Fever, Malaise Eyes: Denies: Eye discharge ENT: Denies: Congestion Respiratory: Denies: Cough, Dyspnea Cardiovascular: Denies: Arrhythmia, Chest pain Endocrine: Denies: Fatigue Gastrointestinal: Reports: Abdominal pain. Denies: Diarrhea, Nausea, Vomiting Genitourinary: Denies: Dysuria Musculoskeletal: Denies: Arthralgia Skin: Denies: Bruising Past Medical History - SOCIAL HISTORY Smoking Status: Never smoker Alcohol Use: None Drug Use: None - RESPIRATORY Hx Respiratory Disorders: No - CARDIOVASCULAR Hx Cardio Disorders: No - NEURO Hx Neuro Disorders: No - GI Hx GI Disorders: Yes Hx Diverticulitis: Yes (hx) Hx Reflux: Yes - Hx Genitourinary Disorders: Yes Hx UTI: Yes (chronic) - ENDOCRINE Hx Endocrine Disorders: No - MUSCULOSKELETAL Hx Musculoskeletal Disorders: Yes Hx Arthritis: Yes - PSYCH Hx Psych Problems: No - HEMATOLOGY/ONCOLOGY Hx Hematology/Oncology Disorders: Yes Hx Cancer: Yes (Lymphoma (Bowels, Lungs, 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 negative: Tonsillar erythema, Tonsillar exudate - Neck Neck exam: Normal inspection, Full ROM. negative: Tenderness - Respiratory Respiratory exam: Normal lung sounds bilaterally. negative: Respiratory distress - Cardiovascular Cardiovascular Exam: Regular rate, Normal rhythm, Normal heart sounds - GI/Abdominal GI/Abdominal exam: Soft, Normal bowel sounds, Tenderness (There is very mild LLQ tenderness to palpation.). negative: Distended, Guarding, Hypoactive bowel sounds, Mass, Rebound, Rigid - Extremities Extremities exam: Normal inspection, Full ROM, Normal capillary refill. negative: Tenderness - Neurological Neurological exam: Alert. negative: Motor sensory deficit Course Vital Signs 08/17/18 08/17/18 13:40 13:48 Temperature 98.0 F Pulse Rate 80 Respiratory 18 Rate Blood Pressure 136/73 Pulse Ox 91 L 95 - Reevaluation(s) Reevaluation #1: The patient is doing well and resting comfortably. She has no fever and no AP at this time. On exam her abdomen is very soft and nontender in all 4 quads. I did discuss the CT result with the patient and the need for an IV Abx dose for the Colitis. Due to the patient being very stable I do feel she can be discharged to home after the IV dose. 08/17/18 15:11 08/17/18 15:21 Medical Decision Making - Data Complexity MDM Data: Labs Ordered and/or Reviewed (The labs from the were reviewed.), X- Ray Ordered and/or Reviewed - Radiology Data Radiology results: Report reviewed (Abd CT: Sigmoid colitis.) Disposition Disposition: Discharge Clinical Impression: Colitis Disposition: Home, Self-Care Condition: (2) Stable Instructions: Colitis (ED) Additional Instructions: Please drink plenty of fluids and take Tylenol or Motrin for pain. Please take the Cipro and Flagyl as directed and see your family doctor next week for recheck. Return to the ER for any worsening pain, fever, or vomiting. Prescriptions: Ciprofloxacin HCl [Cipro] 500 mg PO Q12HR #14 tablet Metronidazole [Flagyl] 500 mg PO TID #21 tablet Forms: Patient Portal Access Time of Disposition: 15:18 Quality - Quality Measures Quality Measures: N/A - Blood Pressure Screening View Details: Yes Does Patient Have Any of the Following: No Blood Pressure Classification: Pre-Hypertensive BP Reading Systolic Measurement: 136 Diastolic Measurement: 73 Screening for High Blood Pressure: < Pre-Hypertensive BP, F/U Documented > [ G8950] Pre-Hypertensive Follow-up Interventions: Referral to alternative/primary care provider.
[2018-08-17] MEDS ORDERED: ERTAPENEM SODIUM 1 G in 0.9 % SODIUM CHLORIDE 100ML 100 ML IVPB ONE (14:47)
--- NOTE | 2018-08-18 14:55 | CT SCAN REPORT ---
DATE: 08/17/2018. EXAM: CT OF THE ABDOMEN AND PELVIS WITHOUT CONTRAST. HISTORY: ABDOMINAL PAIN. TECHNIQUE: Sequential axial images were obtained from the diaphragms through the ischiorectal fossa without intravenous or oral contrast administration. FINDINGS: The visualized lung bases appear normal. There is a small, sliding- type hiatal hernia. The gallbladder has been surgically removed. No gross abnormalities within the liver. The pancreas appears normal. 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 The adrenal glands and kidneys appear normal. There is a 10-mm exophytic cyst in the right kidney. The urinary bladder appears normal. There is a short segment of wall thickening and inflammatory change involving the sigmoid colon. Findings are consistent with nonspecific colitis. There is osteopenia. Multilevel degenerative change. IMPRESSION: FINDINGS CONSISTENT WITH NONSPECIFIC COLITIS INVOLVING THE SIGMOID COLON. JOB NUMBER: [id number] [facility]
== END 2018-08-17 15:30 | disposition home or self-care (01) ==
LOC: ER 13:37
DX: K52.9 Noninfective gastroenteritis and colitis, unspecified (principal); R10.32 Left lower quadrant pain; R81 Glycosuria
CPT/HCPCS: 99284 ×2; 96365; 85025; 80053; 81001; 83036; 74176; J1335

== ENCOUNTER 2018-09-01 14:20 | Inpatient (IN) | payer MEDICARE ==
[2018-09-01] MEDS ORDERED: SODIUM CHLORIDE 0.9% 500 ML IV ONE (14:48)
--- NOTE | 2018-09-01 14:52 | Emergency Department Record ---
History of Present Illness - General Chief Complaint: Abdominal Pain Stated Complaint: ABDOMINAL PAIN Time Seen by Provider: 09/01/18 14:41 Source: Patient Mode of Arrival: Ambulatory Limitations: No limitations - History of Present Illness Initial Comments: The patient is here due to crampy lower AP for a week off and on. She recently was here at [facility] 2 weeks ago and was diagnosed with mild colitis and did improve on oral Abx's but now feels like the condition is returning. There has been no fever, chills, nausea, vomiting, or diarrhea. The patient does state she has been mildly constipated. MD Complaint: Abdominal pain Onset/Timin -: Week(s) Location: LLQ, Q Radiation: None Severity scale (1-10): 5 Quality: Aching Consistency: Constant Improves With: Nothing Worsens With: Nothing Associated Symptoms: Constipation, Nausea - Related Data Patient : No Home Medications Medication Instructions Recorded Confirmed Last Taken Nitrofurantoin [place] [Macrobid] 1 tab PO DAILY 09/01/18 09/01/18 Unknown Omeprazole 20 mg PO DAILY 09/01/18 09/01/18 Unknown Allergies Allergy/AdvReac Type Severity Reaction Status Date / Time penicillin V Allergy Severe HIVES Verified 09/01/18 14:31 Travel Screening - Travel/Exposure Within Last 30 Days Have you traveled within the last 30 days?: No Review of Systems Constitutional: Denies: Chills, Fever Eyes: Denies: Eye discharge ENT: Denies: Congestion Respiratory: Denies: Cough, Dyspnea Cardiovascular: Denies: Arrhythmia Endocrine: Denies: Fatigue Gastrointestinal: Reports: Abdominal pain, Constipation. Denies: Diarrhea, Vomiting Genitourinary: Denies: Dysuria Musculoskeletal: Denies: Arthralgia Skin: Denies: Bruising Past Medical History - SOCIAL HISTORY Smoking Status: Never smoker Alcohol Use: None Drug Use: None - RESPIRATORY Hx Respiratory Disorders: No - CARDIOVASCULAR Hx Cardio Disorders: No - NEURO Hx Neuro Disorders: No - GI Hx GI Disorders: Yes Hx Diverticulitis: Yes (hx) Hx Reflux: Yes - Hx Genitourinary Disorders: Yes Hx UTI: Yes (chronic) - ENDOCRINE Hx Endocrine Disorders: No - MUSCULOSKELETAL Hx Musculoskeletal Disorders: Yes Hx Arthritis: Yes - PSYCH Hx Psych Problems: No - HEMATOLOGY/ONCOLOGY Hx Hematology/Oncology Disorders: Yes Hx Cancer: Yes (Lymphoma (Bowels, Lungs, 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 negative: Tonsillar erythema, Tonsillar exudate - Neck Neck exam: Normal inspection, Full ROM. negative: Tenderness - Respiratory Respiratory exam: Normal lung sounds bilaterally. negative: Respiratory distress - Cardiovascular Cardiovascular Exam: Regular rate, Normal rhythm, Normal heart sounds - GI/Abdominal GI/Abdominal exam: Soft, Tenderness (There is very mild lower abdominal tenderness.). negative: Distended, Guarding, Rebound, Rigid - Extremities Extremities exam: Normal inspection, Full ROM, Normal capillary refill. negative: Tenderness - Neurological Neurological exam: Alert, Normal gait. negative: Abnormal gait, Motor sensory deficit - Psychiatric Psychiatric exam: negative: Anxious - Skin Skin exam: negative: Rash Course Vital Signs 09/01/18 14:31 Temperature 97.8 F Pulse Rate [ 77 Pulse Ox Probe] Respiratory 16 Rate Blood Pressure 137/71 [Left Arm] Pulse Ox 96 - Reevaluation(s) Reevaluation #1: The patient is resting comfortably and denies any new complaints. I did discuss the need for IV Abx;s with her since she was just on oral medicines for it and is not better. I also did discus the case with Sparkle (FARM MACHINE OPERATOR) and she does accept the admission for Dr. Lacy. 09/01/18 17:30 Medical Decision Making - Lab Data Result diagrams: 09/01/18 14:50 09/01/18 14:50 Disposition Disposition: Admit Clinical Impression: Diverticulitis large intestine Qualifiers: Diverticulitis bleeding: without bleeding Diverticulitis complication: unspecified complication status Qualified Code(s): K57.32 - Diverticulitis of large intestine without perforation or abscess without bleeding Disposition: Still a Patient at [facility] Decision to Admit: Admit from ER Decision to Admit Date: 09/01/18 Decision to Admit Time: 17:31 Accepting Physician: Bambi Time Discussed w/Accepting Physician: 17:31 Condition: (2) Stable Instructions: Abdominal Pain (ED) Forms: Patient Portal Access Time of Disposition: 17:31 Quality - Quality Measures Quality Measures: N/A - Blood Pressure Screening View Details: Yes Does Patient Have Any of the Following: No Blood Pressure Classification: Pre-Hypertensive BP Reading Systolic Measurement: 124 Diastolic Measurement: 63 Screening for High Blood Pressure: < Pre-Hypertensive BP, F/U Documented > [ G8950] Pre-Hypertensive Follow-up Interventions: Referral to alternative/primary care provider.
[2018-09-01 15:00] LABS: BASO % 0.3 % (0-6); EOS % 0.7 % (0-6); GRAN % 65.5 % (47-80); HEMATOCRIT 36.7 % (35.0-47.0); HEMOGLOBIN 11.9 gm/dl (11.6-16.0); LYMPH % 24.5 % (16-45); MEAN CELL VOLUME 89.5 fl (81-97); MEAN CORPUSCULAR HGB CONC 32.4 g/dl (32-36); PLATELET COUNT 304 K/uL (130-400); WHITE BLOOD COUNT W/O DIFF 15.9 K/uL (4.2-12.2)
[2018-09-01 15:13] LABS: BLOOD UREA NITROGEN 16 mg/dL (8-23); CREATININE 0.7 mg/dL (0.5-0.9); EST GLOMERULAR FILTRATION RATE > 60 mL/min; TOTAL PROTEIN 6.8 g/dL (6.6-8.7)
[2018-09-01 15:15] LABS: GLUCOSE,RANDOM 94 mg/dL (74-109)
[2018-09-01 15:18] LABS: ALBUMIN 3.6 g/dL (4.0-5.0); ALKALINE PHOSPHATASE 62 U/L (45-87); ALT/SGPT 9 U/L (<33); AST/SGOT 16 U/L (10.0-35.0); LIPASE 26 U/L (13-60)
[2018-09-01 15:20] LABS: BILIRUBIN,DIRECT < 0.2 mg/dL (0-0.3)
[2018-09-01] MEDS ORDERED: ERTAPENEM SODIUM 1 G in 0.9 % SODIUM CHLORIDE 100ML 100 ML IVPB ONE (17:27)
[2018-09-01] MEDS ORDERED: ONDANSETRON HCL IV 4 MG/2 ML VIAL IVP PRN (18:32)
[2018-09-01] MEDS ORDERED: ACETAMINOPHEN 325 MG TAB PO PRN (18:32)
[2018-09-01] MEDS ORDERED: HYDROMORPHONE HCL 2 MG/ML VIAL IV PRN (18:32)
[2018-09-01] MEDS ORDERED: PNEUM 13-VAL/PF 0.5 ML IM ONE (19:17)
[2018-09-02 06:25] LABS: BASO % 0.5 % (0-6); EOS % 1.3 % (0-6); GRAN % 61.2 % (47-80); HEMATOCRIT 38.2 % (35.0-47.0); HEMOGLOBIN 12.2 gm/dl (11.6-16.0); MEAN CELL VOLUME 90.3 fl (81-97); MEAN CORPUSCULAR HEMOGLOBIN 28.8 pg (27-33); MEAN CORPUSCULAR HGB CONC 31.9 g/dl (32-36); MEAN PLATELET VOLUME 9.6 fl (7.4-10.4); PLATELET COUNT 314 K/uL (130-400); RED BLOOD COUNT 4.23 M/uL (3.80-5.40); RED CELL DISTRIBUTION WIDTH 13.7 % (11.5-14.5); WHITE BLOOD COUNT W/O DIFF 12.5 K/uL (4.2-12.2)
[2018-09-02 06:35] LABS: BLOOD UREA NITROGEN 14 mg/dL (8-23); CREATININE 0.6 mg/dL (0.5-0.9); EST GLOMERULAR FILTRATION RATE > 60 mL/min; GLUCOSE,RANDOM 57 mg/dL (74-109)
--- NOTE | 2018-09-02 09:15 | History & Physical ---
History of Present Illness - Date of Service Date of Service for History & Physical: 09/03/18 - History of Present Illness Admitting Diagnosis: 1. Acute Sigmoid Diverticulitis. History of Present Illness: 83 yo female presents for admission for outpt failure for diverticulitis. Pt reports some LLQ soreness for several days, taking motrin 400mg BID, cipro and flaygl. Denies bleeding or fever/chills. 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 Chemo and small bowel resection, remission 4 years. 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 09/01/18 Pt presented to ER for LLQ soreness, CT reveals little improvement in diverticulitis with outpt tx and new constipation. Pt had small formed BM but denies any blood. BP 137/71, HR 77, RR 16, 96%RA, 97.8F WBC 15.9, Hgb 11.9, Hct 36.7, Plt 304 Na 134, K 4.4, Cl 98, CO2 24, Anion Gap 12, BUN 16, Cr 0.7, GFR >60, Glucose 94 , LFT wnl, lipase 26 09/02/18 Pt resting comfortably in bed, moving all extremities with no difficulty. Pt denies pain, N/V/D. WBC 12.5, hgb 12.2, Hct 38.2, Plt 314 Na 139, K 4.1, Cl 101, CO2 22, Anion Gap 16, BUN 14, Cr 0.6, GFR >60, glucose 57 (pt ate breakfast after labs obtained) POC to start bowel prepping to relieve constipation, pt aggress to start with prune juice and MOM. Pericolase BID and add mirilax if no resolve in 24 hours. PCP [facility] (has not seen in 10 yrs) Travel Screening - Travel/Exposure Within Last 30 Days Have you traveled within the last 30 days?: No - Travel/Exposure Within Last Year Have you traveled outside the [place] in the last year?: No - Additonal Travel Details Have you been exposed to anyone with a communicable illness?: No Review of Systems Constitutional: Denies: Chills, Fever Eyes: Denies: Eye discharge ENT: Denies: Congestion Respiratory: Denies: Cough, Dyspnea Cardiovascular: Denies: Arrhythmia Endocrine: Denies: Fatigue Gastrointestinal: Reports: Abdominal pain, Constipation. Denies: Diarrhea, Vomiting Genitourinary: Denies: Dysuria Musculoskeletal: Denies: Arthralgia Skin: Denies: Bruising Past Medical History - SOCIAL HISTORY Smoking Status: Never smoker Alcohol Use: None Drug Use: None - RESPIRATORY Hx Respiratory Disorders: Yes Hx Pneumonia: Yes - CARDIOVASCULAR Hx Cardio Disorders: No - NEURO Hx Neuro Disorders: No - GI Hx GI Disorders: Yes Hx Abdominal Pain: Yes Hx Diverticulitis: Yes (hx) Hx Reflux: Yes Hx Nausea/Vomiting: Yes - Hx Genitourinary Disorders: Yes Hx UTI: Yes (chronic) - ENDOCRINE Hx Endocrine Disorders: No Hx Diabetes: No Hx Thyroid Disease: No - MUSCULOSKELETAL Hx Musculoskeletal Disorders: Yes Hx Arthritis: Yes - PSYCH Hx Psych Problems: No - HEMATOLOGY/ONCOLOGY Hx Hematology/Oncology Disorders: Yes Hx Cancer: Yes (Lymphoma (Bowels, Lungs, 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)) Hx Chemotherapy: Yes (2013) Hx Radiation Therapy: No Family Medical History Any Significant Family History?: Yes Hx Cancer: Father H&P Meds/Allergies - Allergies Allergies: Allergies Allergy/AdvReac Type Severity Reaction Status Date / Time penicillin V Allergy Severe HIVES Verified 09/01/18 14:31 - Home Medications Home Medications Medication Instructions Recorded Confirmed Last Taken Nitrofurantoin [place] [Macrobid] 1 tab PO DAILY 09/01/18 09/01/18 Unknown Omeprazole 20 mg PO DAILY 09/01/18 09/01/18 Unknown - Active Medications Active Medications: Current Medications Acetaminophen (Tylenol 325mg) 650 mg PO Q6H PRN PRN Reason: PAIN - MILD(1-4)/FEVER Last Admin: 09/01/18 21:30 Dose: 650 mg Hydromorphone HCl (Dilaudid) 0.5 mg IV Q4H PRN PRN Reason: ABDOMINAL PAIN Ondansetron HCl (Zofran) 4 mg IVP Q4H PRN PRN Reason: NAUSEA Pantoprazole Sodium (Protonix Iv) 40 mg IV DAILY LIZY Physical Exam - Vital Signs Vital Signs: Vital Signs - Last 24 Hrs Temp Pulse Resp BP Pulse Ox 09/02/18 04:00 97.9 F 72 16 117/54 91 L 09/02/18 00:00 97.9 F 72 16 135/64 96 09/01/18 21:00 79 16 09/01/18 20:00 99.8 F H 79 16 124/64 98 09/01/18 18:32 97.9 F 75 20 125/63 96 09/01/18 17:41 79 18 124/63 95 09/01/18 14:31 97.8 F 77 16 137/71 96 - General General Appearance: Alert, Oriented x3, Cooperative, No acute distress Limitations: No limitations - Head Head exam: Atraumatic, Normocephalic, Normal inspection - Eye Eye exam: Normal appearance - ENT Throat exam: Normal inspection. negative: Tonsillar erythema, Tonsillar exudate - Neck Neck exam: Normal inspection, Full ROM. negative: Tenderness - Respiratory Respiratory exam: Normal lung sounds bilaterally. negative: Respiratory distress - Cardiovascular Cardiovascular Exam: Regular rate, Normal rhythm, Normal heart sounds Peripheral Pulses: 3+: Radial (R), Radial (L), Dorsalis Pedis (R), Dorsalis Pedis (L) - GI/Abdominal GI/Abdominal exam: Soft, Normal bowel sounds, Tenderness (There is very mild lower abdominal tenderness.). negative: Distended, Guarding, Rebound, Rigid - Rectal Rectal exam: Deferred - exam: Deferred - Extremities Extremities exam: Normal inspection, Full ROM, Normal capillary refill. negative: Tenderness - Neurological Neurological exam: Alert, Normal gait. negative: Abnormal gait, Motor sensory deficit - Psychiatric Psychiatric exam: Normal affect, Normal mood. negative: Anxious - Skin Skin exam: negative: Rash Results - Labs Result Diagrams: 09/03/18 05:55 09/03/18 05:55 Labs Last 24 Hours: Laboratory Results - last 24 hr 09/01/18 09/01/18 09/02/18 14:50 14:50 05:55 WBC 15.9 H 12.5 H RBC 4.10 4.23 Hgb 11.9 12.2 Hct 36.7 38.2 MCV 89.5 90.3 MCH 29.0 28.8 MCHC 32.4 31.9 L RDW 14.0 13.7 Plt Count 304 314 MPV 9.0 9.6 Gran % 65.5 61.2 Lymphocytes % 24.5 27.0 Monocytes % 9.0 10.0 H Eosinophils % 0.7 1.3 Basophils % 0.3 0.5 Sodium 134 L Potassium 4.4 Chloride 98 Carbon Dioxide 24.0 Anion Gap 12.0 BUN 16 Creatinine 0.7 Estimated GFR > 60 Random Glucose 94 Calcium 8.8 Total Bilirubin 0.90 Direct Bilirubin < 0.2 AST 16 ALT 9 Alkaline Phosphatase 62 Total Protein 6.8 Albumin 3.6 L Lipase 26 09/02/18 05:55 WBC RBC Hgb Hct MCV MCH MCHC RDW Plt Count MPV Gran % Lymphocytes % Monocytes % Eosinophils % Basophils % Sodium 139 Potassium 4.1 Chloride 101 Carbon Dioxide 22.0 Anion Gap 16.0 BUN 14 Creatinine 0.6 Estimated GFR > 60 Random Glucose 57 L Calcium 8.8 Total Bilirubin Direct Bilirubin AST ALT Alkaline Phosphatase Total Protein Albumin Lipase - Imaging and Cardiology CT scan - abdomen Status: Pending (audio clip reviewed) VTE H&P Assessment - Risk for VTE Risk for VTE: Yes Risk Level: High Risk Assessment Date: 09/02/18 Risk Assessment Time: 10:00 VTE Orders Placed or Will Be Placed: Yes Plan - Inpatient Certification Inpatient Certification: Admit to inpatient care: Based on my medical assessment, after consideration of patient's risk factors (age, co-morbidities and patient presenting symptoms and acuity), I expect that this patient will remain in the hospital greater than or equal to two midnights and that the services needed warrant inpatient care because: Patient Risk Factors: leukyocytosis, perforation, obstruction Estimated length of stay: The patient may reasonably be expected to be discharged or transferred to a hospital within 96 hours after admission to [facility]. Services needed: IV antibiotics, lab monitoring Post hospital care (if known): I certify that my determination is in accordance with my understanding of Medicare requirements for reasonable and necessary inpatient services. 09/03/18 12:07 - Detailed Diagnosis and Plan (1) Diverticulitis large intestine Current Visit: Yes Status: Acute Qualifiers: Diverticulitis bleeding: without bleeding Diverticulitis complication: unspecified complication status Qualified Code(s): K57.32 - Diverticulitis of large intestine without perforation or abscess without bleeding Base Code: K57.32 - DVTRCLI OF LG INT W/O PERFORATION OR ABSCESS W/O BLEEDING Comment: 09/02/18 -pt reports slight "soreness" but denies cramping or bleeding -complted outpt tx of flyagl and cipro and failed -continued inflammation, elevated WBC and constipation -Started Invanz in ER, will continue QD (2) DVT prophylaxis Current Visit: No Status: Acute Base Code: [id number] - Comment: 09/02/18 - will add lovenox 40mg sq daily. (3) Full code status Current Visit: No Status: Acute Base Code: Z78.9 - OTHER SPECIFIED HEALTH STATUS Comment: 09/02/18- patient is full code
[2018-09-02] MEDS: PANTOPRAZOLE SODIUM IV 40 MG VIAL IV SCH (10:10)
[2018-09-02] MEDS ORDERED: MAGNESIUM HYDROXIDE 30 ML UDC PO PRN (11:33)
[2018-09-02] MEDS ORDERED: POLYETHYLENE GLY 17 GM PACKET PO PRN (11:36)
[2018-09-02] MEDS: SENNOSIDES/DOCUSATE SODIUM UD CAPSULE PO SCH ×2 (13:26→21:24)
[2018-09-02] MEDS: ERTAPENEM SODIUM 1 G in 0.9 % SODIUM CHLORIDE 100ML 100 ML IVPB SCH (17:23)
--- NOTE | 2018-09-02 19:34 | CT SCAN REPORT ---
EXAM: CT SCAN ABDOMEN/PELVIS W CONTRAST HISTORY: PELVIC PRESSURE WITH NAUSEA AND CONSTIPATION. HISTORY OF DIVERTICULITIS AND CHRONIC UTI, NOW WITH INCREASED WHITE BLOOD CELL COUNT. TECHNIQUE: After the administration of 100 mL of intravenous Omnipaque-300, axial images are obtained from the dome of the diaphragm to the symphysis pubis. FINDINGS: The lung bases and pleural spaces are clear. The liver demonstrates a tiny peripheral granuloma but is otherwise unremarkable. The gallbladder is surgically absent. There are numerous granulomata in the spleen without soft tissue mass. There is a small hiatal hernia. The pancreas is free of focal mass or pancreatic ductal dilatation. The adrenal glands are normal, as are the kidneys. No soft tissue mass or hydronephrosis is demonstrated. The small bowel is unremarkable. There is modest constipation with stool filling the colon from rectum to cecum. There are mild inflammatory changes around the sigmoid colon, where numerous diverticula are present. No pericolonic abscess is identified. There is no evidence of intraperitoneal free air. No pelvic masses are seen. There is no evidence of ascites. IMPRESSION: SIGMOID DIVERTICULITIS. THE PERIDIVERTICULAR INFLAMMATORY CHANGES ARE ONLY MINIMALLY IMPROVED WHEN COMPARED TO THE PRIOR EXAMINATION OF 08/17/18. THERE IS NO EVIDENCE OF BOWEL OBSTRUCTION. THERE IS EVIDENCE OF CONSTIPATION. JOB NUMBER: [id number] [facility]
[2018-09-03 06:20] LABS: BASO % 0.3 % (0-6); EOS % 3.4 % (0-6); GRAN % 52.1 % (47-80); HEMATOCRIT 38.4 % (35.0-47.0); HEMOGLOBIN 12.4 gm/dl (11.6-16.0); MEAN CELL VOLUME 89.7 fl (81-97); MEAN CORPUSCULAR HGB CONC 32.3 g/dl (32-36); MEAN PLATELET VOLUME 9.3 fl (7.4-10.4); MONO % 9.2 % (0-9); PLATELET COUNT 321 K/uL (130-400); RED BLOOD COUNT 4.28 M/uL (3.80-5.40); RED CELL DISTRIBUTION WIDTH 13.7 % (11.5-14.5); WHITE BLOOD COUNT W/O DIFF 9.9 K/uL (4.2-12.2)
[2018-09-03 06:35] LABS: BLOOD UREA NITROGEN 9 mg/dL (8-23); CREATININE 0.6 mg/dL (0.5-0.9); EST GLOMERULAR FILTRATION RATE > 60 mL/min; GLUCOSE,RANDOM 85 mg/dL (74-109)
[2018-09-03] MEDS: SENNOSIDES/DOCUSATE SODIUM UD CAPSULE PO SCH (10:26)
[2018-09-03] MEDS: PANTOPRAZOLE SODIUM IV 40 MG VIAL IV SCH (10:51)
--- NOTE | 2018-09-03 12:17 | Discharge Summary ---
Providers Discharge Summary Date: 09/03/18 Date of admission: 09/01/18 18:29 Expected Date of Discharge: 09/03/18 Attending physician: RUPERTO BARAJAS Physical Exam - Vital Signs Vital Signs: Vital Signs - Last 24 Hrs Temp Pulse Resp BP Pulse Ox 09/03/18 09:00 98.5 F 74 16 104/56 94 L 09/03/18 05:00 98.1 F 68 16 116/62 92 L 09/02/18 21:00 98.9 F 68 16 124/60 93 L 09/02/18 16:30 74 18 147/77 96 - General General Appearance: Alert, Oriented x3, Cooperative, No acute distress Limitations: No limitations - Head Head exam: Atraumatic, Normocephalic, Normal inspection Head exam detail: negative: Abrasion, Contusion - Eye Eye exam: Normal appearance - ENT ENT exam: Normal exam Mouth exam: Normal external inspection Throat exam: Normal inspection. negative: Tonsillar erythema, Tonsillar exudate - Neck Neck exam: Normal inspection, Full ROM. negative: Tenderness - Respiratory Respiratory exam: Normal lung sounds bilaterally. negative: Respiratory distress - Cardiovascular Cardiovascular Exam: Regular rate, Normal rhythm, Normal heart sounds Peripheral Pulses: 3+: Radial (R), Radial (L), Dorsalis Pedis (R), Dorsalis Pedis (L) - GI/Abdominal GI/Abdominal exam: Soft, Normal bowel sounds, Tenderness (There is very mild lower abdominal tenderness.). negative: Distended, Guarding, Rebound, Rigid - Rectal Rectal exam: Deferred - exam: Deferred - Extremities Extremities exam: Normal inspection, Full ROM, Normal capillary refill. negative: Tenderness - Neurological Neurological exam: Alert, Normal gait. negative: Abnormal gait, Motor sensory deficit - Psychiatric Psychiatric exam: Normal affect, Normal mood. negative: Anxious - Skin Skin exam: negative: Rash Hospitalization - Hospitalization Admission Diagnosis: 1. Acute Sigmoid Diverticulitis. - Problem List/Discharge Diagnosis (1) Diverticulitis large intestine Current Visit: Yes Status: Acute Discharge Diagnosis: Diverticulitis bleeding: without bleeding Diverticulitis complication: unspecified complication status Qualified Code(s): K57.32 - Diverticulitis of large intestine without perforation or abscess without bleeding Base Code: K57.32 - DVTRCLI OF LG INT W/O PERFORATION OR ABSCESS W/O BLEEDING Comment: 09/02/18 -pt reports slight "soreness" but denies cramping or bleeding -complted outpt tx of flyagl and cipro and failed -continued inflammation, elevated WBC and constipation -Started Invanz in ER, will continue QD 09/03/18 -pt has had 3 BMs, reports feeling better with some soreness remaining (2/10) but tolerable -pt states she has had more improvement with this IV abx than she did during her entire tx with PO -tele pharmacy contacted, no PO alternatives available with failure to flyagl and cipro, pt to have 2 more doses q24hrs x2 outpt and f/u PCP within 1-2 weeks (2) DVT prophylaxis Current Visit: No Status: Acute Base Code: [id number] - Comment: 09/02/18 - will add lovenox 40mg sq daily. -lovenox was not ordered yesterday but pt is d/cing today (3) Full code status Current Visit: No Status: Acute Base Code: Z78.9 - OTHER SPECIFIED HEALTH STATUS Comment: 09/03/18- patient is full code - Hospitalization Course Disposition: Home, Self-Care Hospital Course: 83 yo female presents for admission for outpt failure for diverticulitis. Pt reports some LLQ soreness for several days, taking motrin 400mg BID, cipro and flaygl. Denies bleeding or fever/chills. 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 Chemo and small bowel resection, remission 4 years. 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 09/01/18 Pt presented to ER for LLQ soreness, CT reveals little improvement in diverticulitis with outpt tx and new constipation. Pt had small formed BM but denies any blood. BP 137/71, HR 77, RR 16, 96%RA, 97.8F WBC 15.9, Hgb 11.9, Hct 36.7, Plt 304 Na 134, K 4.4, Cl 98, CO2 24, Anion Gap 12, BUN 16, Cr 0.7, GFR >60, Glucose 94 , LFT wnl, lipase 26 09/02/18 Pt resting comfortably in bed, moving all extremities with no difficulty. Pt denies pain, N/V/D. WBC 12.5, hgb 12.2, Hct 38.2, Plt 314 Na 139, K 4.1, Cl 101, CO2 22, Anion Gap 16, BUN 14, Cr 0.6, GFR >60, glucose 57 (pt ate breakfast after labs obtained) POC to start bowel prepping to relieve constipation, pt aggress to start with prune juice and MOM. Pericolase BID and add mirilax if no resolve in 24 hours. PCP [facility] (has not seen in 10 yrs) Procedures: Imaging and X-Rays 09/01/18 14:48 ABDOMEN/PELVIS W CONTRAST [CT] Stat Abnormal Labs: Abnormal Lab Results 09/01/18 09/01/18 09/02/18 Range/Units 14:50 14:50 05:55 WBC 15.9 H 12.5 H (4.2-12.2) K/uL MCHC 31.9 L (32-36) g/dl Monocytes % 10.0 H (0-9) % Sodium 134 L (136-145) mmol/L Potassium (3.4-4.5) mmol/L Random Glucose (74-109) mg/dL Albumin 3.6 L (4.0-5.0) g/dL 09/02/18 09/03/18 09/03/18 Range/Units 05:55 05:55 05:55 WBC (4.2-12.2) K/uL MCHC (32-36) g/dl Monocytes % 9.2 H (0-9) % Sodium (136-145) mmol/L Potassium 4.7 H (3.4-4.5) mmol/L Random Glucose 57 L (74-109) mg/dL Albumin (4.0-5.0) g/dL Condition at Discharge: (2) Stable Discharge Diagnosis: Diverticulitis Discharge Medications - Discharge Medications Home Medications: Ambulatory Orders Omeprazole 20 mg PO DAILY 09/01/18 [Last Taken Unknown] Acetaminophen [Tylenol 325Mg] 650 mg PO Q6H PRN tablet 09/03/18 [Last Taken Unknown] Discharge Plan - Discharge Instructions Activity at Discharge: Increase Activity as Tolerated Diet at Discharge: Regular Diet Instructions: Abdominal Pain (ED) Additional Instructions: Return in 24 hours for Invanz 1gm antibiotic infusion. You need 2 more doses to finish treatment. Do not take your Macrobid until you see you PCP, follow up with PCP in 1-2 weeks. You already have a physical scheduled, you need to call the office and update them that you need to change that appt to a hospital follow up. This will give them time to get the records from this visit. Return to ER for increased abdominal pain, blood in stool or vomit, unable to eat or drink, or if no urine production in 12-18 hours. Quality Measures - Quality Measures Quality Measures: Advance Directives, Documentation of Current Medications in Medical Record, Elder Maltreatment Screen and Follow-Up Plan, Screening for High Blood Pressure and F/U Documented - Current Medications Quality Measure: Measure #130: Documentation of Current Medications Documentation of Current Medications: <Current Medications Documented/Reviewed> [G8413] - Blood Pressure Screening Quality Measure: Screening for High Blood Pressure and Follow-Up Documented Does Patient Have Any of the Following: No Blood Pressure Classification: Normal BP Reading Systolic Measurement: 104 Diastolic Measurement: 56 Screening for High Blood Pressure: < Normal BP, F/U Not Required > [G8726] - Advance Directives Quality Measure: Measure #47: Care Plan Advance Directives Established: No Advance Directives Information Provided To Patient: No Advance Directives on File: No Living Will: No Power of Call Center Manager: No Advance Care Planning: <Care Plan/Decision Maker Documented; Discussed & Documented> [7833P] - Elder Abuse Suspicion Index Screening: Elder Abuse Suspicion Index Screening Rely on people for bathing, dressing, shopping, banking, etc: No Prevented from getting food, clothes, medication, etc: No Made to feel shamed or threatened by someone: No Forced to sign papers or use money against will: No Feel afraid, touched in ways not wanted or hurt physically: No Poor eye contact, withdrawn, malnourished, cuts or bruises: No Screening Result: Negative result EASI Reference Information: Stoney CERVANTES, Jamie C, Americo D, Geoffrey M.Development and validation of a tool to assist physicians identification of elder abuse: The Elder Abuse Suspicion Index (EASI ). Journal of Elder Abuse and Neglect, 2008; 20 (3): 276-300. - Elder Maltreatment Screen Quality Measures: Elder Maltreatment Screen and Follow-Up Plan Elder Maltreatment Screen: <Negative, No Follow-Up Plan Required> [G8734]
[2018-09-03] MEDS: ERTAPENEM SODIUM 1 G in 0.9 % SODIUM CHLORIDE 100ML 100 ML IVPB SCH (16:51)
[2018-09-04] MEDS ORDERED: PANTOPRAZOLE SODIUM 40 MG TABLET PO SCH (07:00)
== END 2018-09-03 18:35 | disposition home or self-care (01) | DRG 951 ==
LOC: ER 14:20 → MEDSURG 18:29
PROVIDERS: ADMIT Internal Medicine; ATTEND Internal Medicine
DX: Z12.11 Encounter for screening for malignant neoplasm of colon (principal); Z79.899 Other long term (current) drug therapy; Z51.81 Encounter for therapeutic drug level monitoring; E78.5 Hyperlipidemia, unspecified; K57.32 Diverticulitis of large intestine without perforation or abscess without bleeding; K59.00 Constipation, unspecified; R11.0 Nausea; R10.32 Left lower quadrant pain; Z87.440 Personal history of urinary (tract) infections; K21.9 Gastro-esophageal reflux disease without esophagitis; M19.90 Unspecified osteoarthritis, unspecified site; Z90.49 Acquired absence of other specified parts of digestive tract; Z85.038 Personal history of other malignant neoplasm of large intestine; Z85.118 Personal history of other malignant neoplasm of bronchus and lung
CPT/HCPCS: 83690; 85025; 80076; 80048; 82272; 74177; Q9967; J1335; 90686; 96365; 99223; 99285; C9113

== ENCOUNTER 2018-12-25 08:14 | Day surgery (SDC) | payer MEDICARE ==
[2018-12-25] MEDS ORDERED: LIDOCAINE 2% MDV (20MG/ML) 20ML VIAL IV ONE (08:15)
[2018-12-25] MEDS ORDERED: PROPOFOL 10 MG/ML VIAL IV ONE (08:15)
--- NOTE | 2018-12-26 14:20 | Operative Note ---
DATE OF SURGERY: 12/25/2018 OPERATION: COLONOSCOPY to the cecum. INDICATION: Recent episode of diverticulitis. The patient also has a strong family history of colon cancer. She presents today for colonoscopy. Her last examination was in 2011. ANESTHESIA: Intravenous sedation was administered by the department of anesthesiology and included Diprivan titrated to effect. PROCEDURE: Following informed consent from this alert individual including a discussion of the risks and benefits of the procedure and an opportunity for the patient to ask questions, the patient was in the left lateral decubitus position. A digital rectal examination was performed. No abnormalities were noted. Following this, the Olympus [id number] video colonoscope was inserted into the rectum without resistance. The rectal mucosa had a normal appearance with normal folds and distensibility. The sigmoid colon demonstrated diverticulosis. The endoscope was further advanced up through the bowel to the level of the cecum without much difficulty. Throughout the bowel the mucosa appeared normal, the folds were normal, and the bowel was fairly well distensible. The cecum was defined by noting the appendiceal orifice and ileocecal valve. There were a few scattered diverticula noted in the ascending colon as well. Overall, the preparation was good. From the base of the cecum, the colonoscope was slowly withdrawn. No polyps were noted throughout the examination upon withdrawal. Diverticulosis was again evident in the right and left colon. Retroflexion in the rectum revealed small internal hemorrhoids. The endoscope was then withdrawn. There was a small rectal prolapse noted as well on initial inspection and upon withdrawal and digital exam. The instrument was removed. The patient tolerated the procedure well and was returned to the recovery area in stable condition. IMPRESSION: 1. Small rectal prolapse. 2. Diverticulosis in the right and left colon. 3. Small internal hemorrhoids. RECOMMENDATIONS: The patient was advised to follow up with her primary care physician. She can follow up with us on an as-needed basis. As always, thank you for allowing me to participate in the care of your patient. CC: MD MELISSA San
== END 2018-12-25 10:08 | disposition home or self-care (01) ==
LOC: HOP 08:14
PROVIDERS: ATTEND Internal Medicine Gastroenterology
DX: Z12.11 Encounter for screening for malignant neoplasm of colon (principal); Z80.0 Family history of malignant neoplasm of digestive organs; Z87.19 Personal history of other diseases of the digestive system; K57.30 Diverticulosis of large intestine without perforation or abscess without bleeding; K62.3 Rectal prolapse; K21.9 Gastro-esophageal reflux disease without esophagitis
CPT/HCPCS: 00812; G0105

== ENCOUNTER 2019-01-06 10:47 | Emergency (ER) | payer MEDICARE ==
--- NOTE | 2019-01-06 11:58 | Emergency Department Record ---
History of Present Illness - General Chief complaint: Pain Stated complaint: RIGHT RIB PAIN Time Seen by Provider: 01/06/19 11:04 Source: Patient Mode of Arrival: Ambulatory Limitations: No limitations - History of Present Illness Initial comments: pt was bent over in the garden a week ago when she felt a pop in her right ribs. she has had pain there eversince it increases w movement or coughing Complaint: Other Onset/Timin -: Days(s) Location: Right, Other History of Same: No Radiation: None Severity scale (1-10): 4 Quality: Aching Consistency: Constant Improves with: Immobilization Worsens with: Exertion, Walking Associated Symptoms: Denies other symptoms - Related Data Previous Rx's Medication Instructions Recorded Acetaminophen [Tylenol 325Mg] 650 mg PO Q6H PRN tablet 09/03/18 Hydrocodone/Acetaminophen [Essex 0.5 - 1 tab PO TID PRN #7 tab 01/06/19 5mg/325mg] Allergies Allergy/AdvReac Type Severity Reaction Status Date / Time penicillin V Allergy Severe HIVES Verified 09/01/18 14:31 Travel Screening - Travel/Exposure Within Last 30 Days Have you traveled within the last 30 days?: No Review of Systems Reviewed: No additional complaints except as noted below Constitutional: Reports: As per HPI. Denies: Chills, Fever, Malaise, Night sweats, Weakness, Weight change Eyes: Reports: As per HPI. Denies: Eye discharge, Eye pain, Photophobia, Vision change ENT: Reports: As per HPI. Denies: Congestion, Dental pain, Ear pain, Epistaxis, Hearing loss, Throat pain Respiratory: Reports: As per HPI. Denies: Cough, Dyspnea, Hemoptysis, Stridor, Wheezes Cardiovascular: Reports: As per HPI. Denies: Arrhythmia, Chest pain, Dyspnea on exertion, Edema, Murmurs, Orthopnea, Palpitations, Paroxysmal nocturnal dyspnea, Rheumatic Fever, Syncope Endocrine: Reports: As per HPI. Denies: Fatigue, Heat or cold intolerance, Polydipsia, Polyuria Gastrointestinal: Reports: As per HPI. Denies: Abdominal pain, Constipation, Diarrhea, Hematemesis, Hematochezia, Melena, Nausea, Vomiting Genitourinary: Reports: As per HPI. Denies: Abnormal menses, Discharge, Dyspareunia, Dysuria, Frequency, Hematuria, Incontinence, Retention, Urgency Musculoskeletal: Reports: As per HPI. Denies: Arthralgia, Back pain, Gout, Joint swelling, Myalgia, Neck pain Skin: Reports: As per HPI. Denies: Bruising, Change in color, Change in hair/nails, Lesions, Pruritus, Rash Neurological: Reports: As per HPI. Denies: Abnormal gait, Confusion, Headache, Numbness, Paresthesias, Seizure, Tingling, Tremors, Vertigo, Weakness Psychiatric: Reports: As per HPI. Denies: Anxiety, Auditory hallucinations, Depression, Homicidal thoughts, Suicidal thoughts, Visual hallucinations Hematological/Lymphatic: Reports: As per HPI. 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) - GI Hx GI Disorders: Yes Hx Diverticulitis: Yes (hx) Hx Reflux: Yes - Hx Genitourinary Disorders: Yes Hx UTI: Yes (chronic) - ENDOCRINE Hx Endocrine Disorders: No Hx Diabetes: No Hx Thyroid Disease: No - MUSCULOSKELETAL Hx Musculoskeletal Disorders: Yes Hx Arthritis: Yes - PSYCH Hx Psych Problems: No - HEMATOLOGY/ONCOLOGY Hx Hematology/Oncology Disorders: Yes Hx Cancer: Yes (Lymphoma (Bowels, Lungs, 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)) Hx Chemotherapy: Yes (2013) Hx Radiation Therapy: No Family Medical History Any Significant Family History?: Yes Hx Cancer: Father *Cancer Comment: father colon cancer Hx Diabetes: Grandparents *Diabetes Comment: grandfather on mothers side Hx HTN: Grandparents *HTN Comment: grandmother Physical Exam - General General Appearance: Alert, Oriented x3, Cooperative, No acute distress - Head Head exam: Normal inspection - Eye Eye exam: Normal appearance, PERRL, EOMI Pupils: Normal accommodation - ENT ENT exam: Normal exam, Mucous membranes moist, Normal external ear exam, Normal orophraynx Ear exam: Normal external inspection. negative: External canal tenderness Nasal Exam: Normal inspection. negative: Discharge, Sinus tenderness Mouth exam: Normal external inspection, Tongue normal Teeth exam: Normal inspection. negative: Dental caries Throat exam: Normal inspection. negative: Tonsillar erythema, Tonsillar exudate - Neck Neck exam: Normal inspection, Full ROM. negative: Tenderness - Respiratory Respiratory exam: Normal lung sounds bilaterally, Chest wall tenderness (over lower r ribs). negative: Respiratory distress - Cardiovascular Cardiovascular Exam: Regular rate, Normal rhythm, Normal heart sounds - GI/Abdominal GI/Abdominal exam: Soft, Normal bowel sounds. negative: Tenderness - Rectal Rectal exam: Deferred - exam: Deferred - Extremities Extremities exam: Normal inspection, Full ROM, Normal capillary refill. negative: Tenderness - Back Back exam: Reports: Normal inspection, Full ROM. Denies: Muscle spasm, Rash noted, Tenderness - Neurological Neurological exam: Alert, CN II-XII intact, Normal gait, Oriented X3 - Psychiatric Psychiatric exam: Normal affect, Normal mood - Skin Skin exam: Dry, Intact, Normal color, Warm Course Vital Signs 01/06/19 10:55 Temperature 97.9 F Pulse Rate 71 Respiratory 20 Rate Blood Pressure 129/67 Pulse Ox 97 Disposition Disposition: Discharge Clinical Impression: Occult fracture of bone Disposition: Home, Self-Care Condition: (1) Good Instructions: Rib Fracture (ED), Rib Contusion (ED) Additional Instructions: follow up with family doctor. return sooner if worse. ice to sore area. ibuprofen with food. deep inspiration x 5 an hour Prescriptions: Hydrocodone/Acetaminophen [[place] 5mg/325mg] 0.5 - 1 tab PO TID PRN #7 tab PRN Reason: Pain - General Quality - Quality Measures Quality Measures: N/A - Blood Pressure Screening Does Patient Have Any of the Following: No Blood Pressure Classification: Pre-Hypertensive BP Reading Systolic Measurement: 129 Diastolic Measurement: 67 Screening for High Blood Pressure: < Pre-Hypertensive BP, F/U Documented > [[id number]] Pre-Hypertensive Follow-up Interventions: Follow-up with rescreen every year.
--- NOTE | 2019-01-07 12:19 | RADIOLOGY REPORT ---
DATE: 01/06/2019. EXAM: X-RAY OF THE CHEST AND RIGHT RIBS. HISTORY: THE PATIENT HAS PAIN IN THE RIGHT SIDE OF THE CHEST. TECHNIQUE: AP view of the chest and multiple views of the right ribs are provided. COMPARISON: Comparison CT scan of the chest dated 07/13/2017. Chest x-ray dated 07/12/2017 is provided. FINDINGS: Cardiomediastinal silhouette is within normal limits for size and contour. The willam appear unremarkable. There is no radiographic evidence of a focal infiltrate or pleural effusion. No pneumothorax is noted. The right-sided rib images demonstrate no radiographic evidence of a fracture or dislocation of the right ribs. IMPRESSION: NO RADIOGRAPHIC EVIDENCE OF AN ACUTE INTRATHORACIC PROCESS. UNREMARKABLE PLAIN FILM RADIOGRAPH OF THE RIGHT RIBS. Job Number: [id number] [facility]
== END 2019-01-06 12:06 | disposition home or self-care (01) ==
LOC: ER 10:47
DX: S22.31XA Fracture of one rib, right side, initial encounter for closed fracture (principal); X50.1XXA Overexertion from prolonged static or awkward postures, initial encounter; Y93.H2 Activity, gardening and landscaping; Y92.007 Garden or yard of unspecified non-institutional (private) residence as the place of occurrence of the external cause
CPT/HCPCS: 99283